=== PATIENT | female | born 1965 | race Caucasian/White ===

== ENCOUNTER → 2019-05-29 07:44 | Outpatient (CLI) | payer OTHER ==
[2019-05-29 08:51] LABS: BASOPHILS 0.6 % (0-2); EOSINOPHILS 1.7 % (0-7); HEMATOCRIT 44.2 % (36.0-48.0); HEMOGLOBIN 15.7 g/dL (12-16); LYMPHOCYTES 31.8 % (15-50); MCH 33.7 pg (26.0-34.0); MCHC 35.5 g/dL (31.0-37.0); MCV 94.8 fL (80.0-100.0); MEAN PLATELET VOLUME 9.6 fL (7.4-10.4); MONOCYTES 7.1 % (2-11); NEUTROPHILS 58.8 % (40-80); PLATELET COUNT 210 10x3/uL (130-400); RBC 4.66 10x6/uL (4.00-5.40); RDW 12.7 % (11.5-14.5); WBC 5.4 10x3/uL (4.8-10.8)
[2019-05-29 09:24] LABS: C-REACTIVE PROTEIN < 0.2 mg/dL (0.0-0.9)
[2019-05-29 11:21] LABS: ERYTHROCYTE SEDIMENTATION RATE 0 mm/hr (0-30)
== END | disposition home or self-care (01) ==
LOC: D.NM 07:44
PROVIDERS: ATTEND Clinical Nurse Specialist Family Health
DX: T84.84XA Pain due to internal orthopedic prosthetic devices, implants and grafts, initial encounter (principal); M25.552 Pain in left hip